=== PATIENT | male | born 1980 | race Caucasian/White ===

== ENCOUNTER 2020-09-25 22:19 | Emergency (ER) | payer SELFPAY ==
[~2020-09-25] VITALS: Ht 167.6 cm; Wt 81.2 kg
[2020-09-25 22:26] VITALS: BP 131/79
[2020-09-25 22:28] VITALS: BP 131/79
--- NOTE | 2020-09-25 22:28 | NUR ---
triaged and waiting in ER lobby.
--- NOTE | 2020-09-25 23:38 | NUR ---
d/c with VSS. d/c education given. opportunity to ask questions given and answered. no rx given.
== END 2020-09-25 23:38 | disposition home or self-care (01) ==
LOC: MED 22:19
DX: R25.1 Tremor, unspecified (principal); Z87.442 Personal history of urinary calculi
CPT/HCPCS: 99282

== ENCOUNTER 2023-02-20 14:49 | Emergency (ER) | payer MEDICAID ==
[~2023-02-20] VITALS: Ht 167.6 cm; Wt 89.4 kg
[2023-02-20 15:12] VITALS: BP 115/82; PULSE 68; RESP 14; TEMP 97.8; O2SAT 99
[2023-02-20 17:23] VITALS: BP 115/80; PULSE 61; RESP 14; TEMP 97.8; O2SAT 97
== END 2023-02-20 18:18 | disposition home or self-care (01) ==
LOC: MED 14:49
DX: K42.9 Umbilical hernia without obstruction or gangrene (principal)
CPT/HCPCS: 99284